=== PATIENT | male | born 1975 | race Caucasian/White ===

== ENCOUNTER 2021-08-13 10:44 | Outpatient (CLI) | payer MEDICARE, MEDICAID ==
[2021-08-13] MEDS ORDERED: Magnevist 469MG/ML 20 ML VIAL ONE (11:11)
== END 2021-08-13 10:45 | disposition home or self-care (01) ==
LOC: MRI 10:44
PROVIDERS: ATTEND Family Medicine
DX: H53.9 Unspecified visual disturbance (principal); R51.9 Headache, unspecified
CPT/HCPCS: 70553; A9579